=== PATIENT | male | born 1940 | race Caucasian/White ===

== ENCOUNTER 2018-08-10 07:25 | Outpatient (CLI) | payer MEDICARE, BC, SELFPAY ==
[2018-08-10 08:12] LABS: HCT 42.8 % (40.0-50.0); HGB 14.7 g/dL (13.5-17.5); Mean Corp. HGB Concentration 34.3 g/dL (32.0-36.0); Mean Corpuscular Hemoglobin 30.8 pg (27.0-33.0); Mean Corpuscular Volume 89.5 fL (80-95); Mean Platelet Volume 9.6 fL (8.0-11.0); Platelet Count 209 x1000/uL (130-400); RBC 4.78 m/cumm (4.50-6.00); RBC Distribution Width 13.2 % (11.8-14.1); White Blood Cell Count 7.09 k/cumm (4.4-10.8)
[2018-08-10 08:30] LABS: ALT 21 U/L (12-78); AST 17 U/L (15-37); Albumin 3.5 g/dL (3.4-5.0); Alkaline Phosphatase 111 U/L (46-116); Anion Gap 8.3 mmol/L (3-11); BUN 17 mg/dL (7-18); Bilirubin, Total 0.8 mg/dL (0.2-1.0); CO2 26.7 mmol/L (21.0-32.0); Calcium 8.8 mg/dL (8.5-10.1); Chloride 105 mmol/L (98-107); Estimated GFR 58.71 (mL/min/1.73m2); Glucose 127 mg/dL (70-100); Hemoglobin A1C 6.1 % (4.5-6.2); Potassium 4.1 mmol/L (3.5-5.1); Sodium 140 mmol/L (136-145); Total Protein 6.9 g/dL (6.4-8.2)
== END 2018-08-10 07:45 ==
PROVIDERS: PCP Family Medicine; Visit Provider Family Medicine
DX: I25.10 Atherosclerotic heart disease of native coronary artery without angina pectoris (principal); R73.01 Impaired fasting glucose; I10 Essential (primary) hypertension
CPT/HCPCS: 36415; 80053; 85027; 83036

== ENCOUNTER 2019-08-10 10:40 | Outpatient (CLI) | payer MEDICARE, BC, SELFPAY ==
[2019-08-10 11:59] LABS: Hemoglobin A1C 6.3 % (4.5-6.2)
[2019-08-10 12:15] LABS: Anion Gap 8.2 mmol/L (3-11); BUN 14 mg/dL (7-18); CO2 28.8 mmol/L (21.0-32.0); CREATININE 1.06 mg/dL (0.70-1.30); Calcium 8.7 mg/dL (8.5-10.1); Chloride 104 mmol/L (98-107); Glucose 98 mg/dL (70-100); Potassium 4.2 mmol/L (3.5-5.1); Sodium 141 mmol/L (136-145)
== END 2019-08-10 11:00 ==
PROVIDERS: PCP Family Medicine; Visit Provider Family Medicine
DX: R73.01 Impaired fasting glucose (principal); I10 Essential (primary) hypertension; I25.10 Atherosclerotic heart disease of native coronary artery without angina pectoris
CPT/HCPCS: 36415; 80048; 83036; 85610

== ENCOUNTER → 2019-10-07 11:05 | Outpatient (BNVA) | payer MEDICARE, BC, SELFPAY | PROVIDERS: PCP Family Medicine; Referring Provider Family Medicine; Visit Provider Physical Therapy Assistant | DX: Z12.11 Encounter for screening for malignant neoplasm of colon (principal); Z86.010 Personal history of colon polyps; I10 Essential (primary) hypertension; Z95.818 Presence of other cardiac implants and grafts ==

== ENCOUNTER 2019-10-28 06:51 | Day surgery (SDC) | payer MEDICARE, BC, SELFPAY ==
[2019-10-28 07:17] VITALS: BP 135/71; PULSE 51; RESP 17; TEMP 36.3; O2SAT 95
[2019-10-28] MEDS: Lactated Ringers 1,000 ML 80 ML IV (08:12)
--- NOTE | 2019-10-28 08:44 | W.COLOREPORT ---
Date of service: 10/28/19 Time of Service: 08:44 Colonoscopy Report Date of procedure: 10/28/19 Pre-op diagnosis general: adenamoutous polyp Post-op diagnosis procedure note: other Surgeon: Karoline Ramirez Anesthesia proc note operative: GETA Procedure Description: After informed consent was obtained the patient was taken to the procedure room and placed in a left decubitous position. Monitors were applied and a time out was done. The patients name, date of , procedure, allergies to medications and metal in their body was reviewed. The patient was then sedated. Once sedated and comfortable a rectal exam was done. External exam was normal. Internal exam revealed a normal sphincter tone and no palpable masses. The prostate not palpable. The scope was then introduced and retrofelexed. no internal hemorrhoids were identified. The scope was then advanced to the cecum w/out difficulty. The TI and appendiceal orifice were identified. The prep was suboptimal. The scope was then slowly retracted over 10 minutes back into the rectum. There are a few small diverticula confined to the sigmoid colon. There is no signs of active bleeding or infection. The mucosa is pink healthy and appears normal. There is no AVMs or polyps apparent today. Polyps were removed none. The scope was removed and the patient was woken up and taken back to Same day surgery in stable condition. The patient tolerated the procedure well and there were no immediate complications. Follow up: The patient not require any further screening: Unless they develop changes in bowel habits or other new gastrointestinal complaints.
--- NOTE | 2019-10-28 09:05 | W.PM.DS.N ---
Date of service: 10/28/19 Time of Service: 09:05 DS: Diagnosis Discharge Diagnosis (1) Diverticula of colon: Status: Acute Discharge Plan Discharge Details Attending Provider: Karoline Ramirez Primary Care Provider: Nunu Damon Home Meds and New Rx's Prescriptions: No Action loratadine 10 mg tablet 10 mg PO DAILY RF: 0 polyethylene glycol 3350 17 gram/dose powder 238 g PO ONCE Qty: 238 RF: 0 bisacodyl [Dulcolax (bisacodyl)] 5 mg tablet,delayed release (DR/EC) 5 mg PO ONCE Qty: 4 RF: 0 metoprolol succinate 50 MG tablet extended release 24 hr 50 mg PO BID RF: 0 lisinopril 40 MG tablet 40 mg PO DAILY RF: 0 cholecalciferol (vitamin D3) [Vitamin D3] 2,000 UNIT capsule 2,000 unit PO DAILY RF: 0 aspirin 81 MG tablet,delayed release (DR/EC) 81 mg PO DAILY RF: 0 simvastatin 40 MG tablet 40 mg PO HS RF: 0 nitroglycerin [Nitrostat] 0.4 MG tablet, sublingual 4 mg Sublingual DIRECTED RF: 0 DS: Data Vitals/I&O Vitals and I&O: Vital Signs Temperature 36.3 C L 10/28/19 07:17 Pulse 51 L 10/28/19 07:17 Pulse Rhythm Regular 10/28/19 07:17 Respiratory Rate 17 10/28/19 07:17 Respiratory Depth Deep 10/28/19 07:17 Blood Pressure 135/71 10/28/19 07:17 Pulse Oximetry 95 10/28/19 07:17 Oxygen Delivery Method Room Air 10/28/19 07:17 Oxygen Flow Rate 0 10/28/19 07:17 Pain Level 0 10/28/19 07:17 Intake & Output 10/27/19 10/27/19 10/28/19 11:59 23:59 11:59 Intake Total 400 / 400 Balance 400 / 400 Weight 111.9 kg Intake: IV 400 / 400 [facility] Medical History (Updated 10/28/19 @ 09:05 by Karoline Ramirez DO) Acoustic neuroma (Acute) Actinic keratosis (Acute) Adenomatous polyps (Acute) Diverticula of colon (Acute) 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
--- NOTE | 2019-10-28 09:05 | W.PM.DSUDISC ---
Discharge Plan Disposition Patient Disposition: HOME Condition: Good Discharge Details Reason For Visit: colon scope Attending Provider: Karoline Ramirez Primary Care Provider: Nunu Damon Home Meds and New Rx's Prescriptions: Continued loratadine 10 mg tablet 10 mg PO DAILY RF: 0 metoprolol succinate 50 MG tablet extended release 24 hr 50 mg PO BID RF: 0 lisinopril 40 MG tablet 40 mg PO DAILY RF: 0 cholecalciferol (vitamin D3) [Vitamin D3] 2,000 UNIT capsule 2,000 unit PO DAILY RF: 0 aspirin 81 MG tablet,delayed release (DR/EC) 81 mg PO DAILY RF: 0 simvastatin 40 MG tablet 40 mg PO HS RF: 0 nitroglycerin [Nitrostat] 0.4 MG tablet, sublingual 4 mg Sublingual DIRECTED RF: 0 Discontinued polyethylene glycol 3350 17 gram/dose powder 238 g PO ONCE Qty: 238 RF: 0 bisacodyl [Dulcolax (bisacodyl)] 5 mg tablet,delayed release (DR/EC) 5 mg PO ONCE Qty: 4 RF: 0 Discharge Instructions Instructions: Diverticulosis (GEN), High Fiber Diet (GEN) Additional Instructions: Hi do findings: diverticula Make sure you are moving your bowels on a regular basis and no straining. If you fine you are straining/constipation- start a fiber product such as metamucil or benefiber. Follow up:w/ PCP as needed. No further colonoscopies required Please call if you develop: fevers >101.5 Nausea or Vomiting Abdominal pain that is not transient DAY SURGERY UNIT POST COLONOSCOPY INSTRUCTIONS 1. Because there will be medication in your system for the next 24 hours, you may feel a little sleepy. Your coordination will be affected. Therefore: a. Do not drive or operate dangerous equipment for 24 hours. b. Do not drink alcohol beverages for 24 hours (not even beer). c. Plan to go home and rest for the day. 2. Generally there are no restrictions on your activity after a day or so has gone by, but you may feel a bit fatigued for a few days. 3 After you arrive home you may have a light meal and return to a normal diet as you can tolerate it without feeling sick to your stomach. 4. After surgery, you may feel pain or discomfort. This should be only transient, but if it persists please contact your doctor. 5. If there are any questions regarding the findings of your procedure, please feel free to contact your doctor. 6. If you are unable to contact your doctor with a problem, contact the hospital at [phone]. 7. Continue all your regular medications unless directed otherwise. I understand the above instructions and have no questions. Signature of Patient or Responsible Adult Escort Date/Time Name of Responsible Adult Escort Signature of Nurse Date/Time Activity:: No strenuous activity or heavy lifting x24 hours Diet:: Small bland meals x24 hours Discharge Orders Discharge Orders: Discharge Order (Routine); Ordered 10/28/19 Ordered By: Karoline Ramirez DS: Diagnosis Discharge Diagnosis (1) Diverticula of colon: Status: Acute
[2019-10-28 09:09] VITALS: BP 83/36; PULSE 53; RESP 18; TEMP 36.8; O2SAT 94
[2019-10-28 09:14] VITALS: BP 101/42; PULSE 51; RESP 18; TEMP 36.8; O2SAT 95
[2019-10-28 09:19] VITALS: BP 109/45; PULSE 52; RESP 17; TEMP 36.8; O2SAT 95
[2019-10-28 09:32] VITALS: BP 107/53; PULSE 53; RESP 15; TEMP 36.8; O2SAT 97
[2019-10-28 10:15] VITALS: BP 128/64; PULSE 62; RESP 16; TEMP 36; O2SAT 94
== END 2019-10-28 10:34 | disposition home or self-care (01) ==
PROVIDERS: PCP Family Medicine; Visit Provider Surgery
PROC: 0DJD8ZZ Inspection of Lower Intestinal Tract, Via Natural or Artificial Opening Endoscopic (ICD-10-PCS; CPT 45378; principal; 2019-10-28 08:15)
DX: Z12.11 Encounter for screening for malignant neoplasm of colon (principal); Z86.010 Personal history of colon polyps; K57.30 Diverticulosis of large intestine without perforation or abscess without bleeding; I25.10 Atherosclerotic heart disease of native coronary artery without angina pectoris; Z95.5 Presence of coronary angioplasty implant and graft; I10 Essential (primary) hypertension; Z79.01 Long term (current) use of anticoagulants
CPT/HCPCS: G0121

== ENCOUNTER 2020-08-14 10:15 | Outpatient (REF) | payer MEDICARE, BC, SELFPAY ==
[2020-08-14 19:26] LABS: HCT 44.4 % (40.0-50.0); HGB 15.1 g/dL (13.5-17.5); MCH 30.5 pg (27.0-33.0); MCV 89.7 fL (80-95); MPV 9.9 fL (8.0-11.0); Platelet Count 217 10^3/uL (130-400); RBC 4.95 10^6/uL (4.36-5.78); RDW 12.8 % (11.8-14.1); RDW-SD 41.9 fL; WBC 7.23 10^3/uL (4.4-10.8)
[2020-08-14 19:37] LABS: Anion Gap 9.6 mmol/L (3-11); BUN 14 mg/dL (7-18); CO2 26.4 mmol/L (21.0-32.0); CREATININE 1.19 mg/dL (0.70-1.30); Calcium 8.5 mg/dL (8.5-10.1); Calculated LDL 65 mg/dL (<100); Chloride 106 mmol/L (98-107); Cholesterol 149 mg/dL (<200); Estimated GFR 58.97 (mL/min/1.73m2); Glucose 200 mg/dL (74-106); HDL Cholesterol 32 mg/dL (40-60); Potassium 3.7 mmol/L (3.5-5.1); Sodium 142 mmol/L (136-145); Triglyceride 260 mg/dL (<150)
[2020-08-14 20:22] LABS: Hemoglobin A1C 6.2 % (<5.7)
== END 2020-08-14 10:35 ==
LOC: NCHCN 10:15
PROVIDERS: PCP Family Medicine; Visit Provider Family Medicine
DX: R73.03 Prediabetes (principal); I10 Essential (primary) hypertension; E78.5 Hyperlipidemia, unspecified; I25.10 Atherosclerotic heart disease of native coronary artery without angina pectoris
CPT/HCPCS: 80048; 80061; 85027; 83036

== ENCOUNTER 2020-09-04 13:52 | Outpatient (REF) | payer MEDICARE, BC, SELFPAY ==
--- NOTE | 2020-09-04 13:38 | SKI_PTH ---
PATIENT: Estiven Perez LOC: [facility] U#:[id number] AGE/SX: 80/M ROOM: RE09/04/[address]: Winston Vallecillo DO : 1940 BED: DIS: 09/04/2020 SPEC #: [id number] RECD: 09/04/20 18:34 STATUS: BOBBI REQ #: [id number] VASYL: 09/04/20 13:[address]: Winston Vallecillo DEPT: Surgical Specimen RECD BY: Trina Pan ENTERED: 09/04/20 18:34 SP TYPE: MAX VALERIO DR: Nunu Damon Tissues: 1 - SKIN BIOPSY(SHAVE/PUNCH) Procedures: SKIN LEVEL 4 Comments: [id number]
== END 2020-09-04 14:12 ==
LOC: LBN 13:52
PROVIDERS: PCP Family Medicine; Visit Provider Otolaryngology Otolaryngology/Facial Plastic Surgery
DX: C44.219 Basal cell carcinoma of skin of left ear and external auricular canal (principal)
CPT/HCPCS: 88305

== ENCOUNTER 2021-09-11 08:05 | Outpatient (REF) | payer MEDICARE, BC, SELFPAY ==
[2021-09-11 14:06] LABS: HCT 42.1 % (40.0-50.0); MCH 29.5 pg (27.0-33.0); MCHC 33.3 % (32.0-36.0); MCV 88.6 fL (80-95); MPV 9.8 fL (8.0-11.0); Platelet Count 200 10^3/uL (130-400); RBC 4.75 10^6/uL (4.36-5.78); RDW 12.6 % (11.8-14.1); RDW-SD 41.1 fL; WBC 6.62 10^3/uL (4.4-10.8)
[2021-09-11 14:32] LABS: ALT 17 U/L (16-63); AST 13 U/L (15-37); Albumin 3.5 g/dL (3.4-5.0); Alkaline Phosphatase 119 U/L (46-116); BUN 15 mg/dL (7-18); Bilirubin, Total 0.8 mg/dL (0.2-1.0); CREATININE 1.1 mg/dL (0.70-1.30); Calcium 8.8 mg/dL (8.5-10.1); Calculated LDL 79 mg/dL (<100); Chloride 106 mmol/L (98-107); Cholesterol 137 mg/dL (<200); Glucose 147 mg/dL (74-106); HDL Cholesterol 31 mg/dL (40-60); Potassium 4.1 mmol/L (3.5-5.1); Sodium 140 mmol/L (136-145); TSH (W/Ref FT4) 1.92 uIU/mL (0.36-3.74); Total Protein 6.7 g/dL (6.4-8.2); Triglyceride 138 mg/dL (<150)
[2021-09-11 14:51] LABS: Hemoglobin A1C 6.8 % (<5.7)
== END 2021-09-11 08:06 | disposition home or self-care (01) ==
LOC: NCHCN 08:05
PROVIDERS: PCP Family Medicine; Visit Provider Family Medicine
DX: E78.5 Hyperlipidemia, unspecified (principal); I10 Essential (primary) hypertension; R73.03 Prediabetes; I25.10 Atherosclerotic heart disease of native coronary artery without angina pectoris
CPT/HCPCS: 80053; 80061; 85027; 83036; 84443

== ENCOUNTER 2021-10-17 08:20 | Outpatient (REF) | payer MEDICARE, BC, SELFPAY ==
[2021-10-17 19:19] LABS: BUN 22 mg/dL (7-18); CREATININE 1.3 mg/dL (0.70-1.30); Calcium 8.8 mg/dL (8.5-10.1); Chloride 103 mmol/L (98-107); Estimated GFR 53.12 (mL/min/1.73m2); Glucose 246 mg/dL (74-106); Sodium 140 mmol/L (136-145)
== END 2021-10-17 08:21 | disposition home or self-care (01) ==
LOC: NCHCN 08:20
PROVIDERS: PCP Family Medicine; Visit Provider Family Medicine
DX: I10 Essential (primary) hypertension (principal); Z51.81 Encounter for therapeutic drug level monitoring
CPT/HCPCS: 80048

== ENCOUNTER 2022-03-15 19:02 | Outpatient (REF) | payer MEDICARE, BC, SELFPAY ==
[2022-03-15 18:53] LABS: Anion Gap 9.8 mmol/L (3-11); BUN 16 mg/dL (7-18); CO2 24.2 mmol/L (21.0-32.0); CREATININE 1.1 mg/dL (0.70-1.30); Calcium 8.5 mg/dL (8.5-10.1); Chloride 107 mmol/L (98-107); Glucose 117 mg/dL (74-106); Potassium 4.4 mmol/L (3.5-5.1); Sodium 141 mmol/L (136-145)
[2022-03-15 18:59] LABS: Hemoglobin A1C 6.8 % (<5.7)
== END 2022-03-15 19:03 | disposition home or self-care (01) ==
LOC: NCHCN 19:02
PROVIDERS: PCP Family Medicine; Visit Provider Family Medicine
DX: R73.03 Prediabetes (principal); I10 Essential (primary) hypertension
CPT/HCPCS: 80048; 83036

== ENCOUNTER 2022-03-20 19:16 | Outpatient (REF) | payer MEDICARE, BC, SELFPAY ==
[2022-03-20 19:39] LABS: COMMENT (LAB VIEW ONLY) 148.65 mg/dL; Microalb ug/mg Crea 12.2 ug/mg Cr
== END 2022-03-20 19:17 | disposition home or self-care (01) ==
LOC: NCHCN 19:16
PROVIDERS: PCP Family Medicine; Visit Provider Family Medicine
DX: E11.9 Type 2 diabetes mellitus without complications (principal)
CPT/HCPCS: 82043; 82570

== ENCOUNTER 2022-09-16 12:00 | Outpatient (REF) | payer MEDICARE, BC, SELFPAY ==
[2022-09-16 15:54] LABS: ALT 24 U/L (16-63); AST 22 U/L (15-37); Albumin 3.6 g/dL (3.4-5.0); Alkaline Phosphatase 107 U/L (46-116); Anion Gap 6.3 mmol/L (3-11); BUN 15 mg/dL (7-18); CO2 27.7 mmol/L (21.0-32.0); CREATININE 1.2 mg/dL (0.70-1.30); Calcium 9.1 mg/dL (8.5-10.1); Calculated LDL 89 mg/dL (<100); Chloride 108 mmol/L (98-107); Cholesterol 152 mg/dL (<200); Estimated GFR 60.75 (mL/min/1.73m2); Glucose 152 mg/dL (74-106); HDL Cholesterol 41 mg/dL (40-60); Sodium 142 mmol/L (136-145); Total Protein 7.3 g/dL (6.4-8.2); Triglyceride 114 mg/dL (<150)
[2022-09-16 17:04] LABS: Hemoglobin A1C 6.7 % (<5.7)
== END 2022-09-16 12:01 | disposition home or self-care (01) ==
LOC: NCHCN 12:00
PROVIDERS: PCP Family Medicine; Visit Provider Family Medicine
DX: E11.9 Type 2 diabetes mellitus without complications (principal); I25.10 Atherosclerotic heart disease of native coronary artery without angina pectoris; E78.5 Hyperlipidemia, unspecified; I10 Essential (primary) hypertension
CPT/HCPCS: 80053; 80061; 83036

== ENCOUNTER 2022-09-19 15:42 | Outpatient (REF) | payer MEDICARE, BC, SELFPAY ==
[2022-09-19 15:21] LABS: NT-proBNP 713 pg/mL (<300)
== END 2022-09-19 15:43 | disposition home or self-care (01) ==
LOC: NCHCN 15:42
PROVIDERS: PCP Family Medicine; Visit Provider Family Medicine
DX: N40.0 Benign prostatic hyperplasia without lower urinary tract symptoms (principal); R39.14 Feeling of incomplete bladder emptying; I25.2 Old myocardial infarction; R06.09 Other forms of dyspnea
CPT/HCPCS: 83880; 84153

== ENCOUNTER → 2022-10-22 02:53 | Outpatient (CLI) | payer MEDICARE, BC, SELFPAY ==
--- NOTE | 2022-10-22 | DI.US_ITS ---
Exam(s) US RENAL EXAM: US RENAL CLINICAL HISTORY: IMCOMPLETE BLADDER EMPTYING R39.14 PRE AND POST VOID. TECHNIQUE: Donnelly scale, color and spectral Doppler were used. COMPARISON: CT ABD PELVIS WITH CONTRAST from 09/25/2015 FINDINGS: Renal size in cm: Right: 10.4. Left: 10.6. Echogenicity: Normal. Hydronephrosis: No. Cyst or mass: There is a 1.1 x 0.9 cm simple cyst in the superior aspect of the right kidney. No fol low-up is recommended. Nephrolithiasis: No. Other findings: None. Bladder:Normal. Ureteral jets: Right: Visualized and unremarkable. Left: Visualized and unremarkable. Prevoid vol:162 cc Postvoid vol:8 cc Prostate: 56 cc Renal color flow: Symmetric and within normal limits. IMPRESSION: 1. Simple right renal cyst. 2. Enlarged prostate gland. DATA REPOSITORY:
== END ==
PROVIDERS: PCP Family Medicine; Visit Provider Family Medicine
DX: N28.1 Cyst of kidney, acquired (principal)
CPT/HCPCS: 76770

== ENCOUNTER 2022-10-22 15:47 | Outpatient (REF) | payer MEDICARE, BC, SELFPAY ==
[2022-10-22 16:21] LABS: Anion Gap 7.6 mmol/L (3-11); BUN 28 mg/dL (7-18); CO2 26.4 mmol/L (21.0-32.0); CREATININE 1.2 mg/dL (0.70-1.30); Calcium 9.7 mg/dL (8.5-10.1); Chloride 101 mmol/L (98-107); Estimated GFR 60.75 (mL/min/1.73m2); Glucose 143 mg/dL (74-106); Potassium 4.2 mmol/L (3.5-5.1); Sodium 135 mmol/L (136-145)
== END 2022-10-22 15:48 | disposition home or self-care (01) ==
LOC: NCHCN 15:47
PROVIDERS: PCP Family Medicine; Visit Provider Family Medicine
DX: Z00.00 Encounter for general adult medical examination without abnormal findings (principal)
CPT/HCPCS: 80048

== ENCOUNTER 2023-03-19 10:23 | Outpatient (REF) | payer MEDICARE, BC, SELFPAY ==
[2023-03-19 19:55] LABS: NT-proBNP 433 pg/mL (<300)
[2023-03-19 20:01] LABS: COMMENT (LAB VIEW ONLY) 186.64 mg/dL
[2023-03-19 20:36] LABS: Anion Gap 8.9 mmol/L (3-11); BUN 23 mg/dL (7-18); CO2 24.1 mmol/L (21.0-32.0); CREATININE 1.5 mg/dL (0.70-1.30); Calcium 9.1 mg/dL (8.5-10.1); Chloride 101 mmol/L (98-107); Estimated GFR 46.19 (mL/min/1.73m2); Glucose 176 mg/dL (74-106); Sodium 134 mmol/L (136-145)
== END 2023-03-19 10:24 | disposition home or self-care (01) ==
LOC: NCHCN 10:23
PROVIDERS: PCP Family Medicine; Visit Provider Family Medicine
DX: E11.9 Type 2 diabetes mellitus without complications (principal); I10 Essential (primary) hypertension; R60.0 Localized edema; Z51.81 Encounter for therapeutic drug level monitoring
CPT/HCPCS: 80048; 82043; 82570; 83880

== ENCOUNTER 2023-09-08 21:19 | Outpatient (REF) | payer MEDICARE, BC, SELFPAY ==
[2023-09-08 16:28] LABS: Anion Gap 7.2 mmol/L (3-11); BUN 18 mg/dL (7-18); CO2 25.8 mmol/L (21.0-32.0); CREATININE 1.2 mg/dL (0.70-1.30); Chloride 105 mmol/L (98-107); Estimated GFR 60.38 (mL/min/1.73m2); Glucose 217 mg/dL (74-106); Sodium 138 mmol/L (136-145)
[2023-09-08 17:04] LABS: Hemoglobin A1C 7.3 % (<5.7)
== END 2023-09-08 21:20 | disposition home or self-care (01) ==
LOC: NCHCN 21:19
PROVIDERS: PCP Family Medicine; Visit Provider Family Medicine
DX: E11.9 Type 2 diabetes mellitus without complications (principal); I10 Essential (primary) hypertension; R60.0 Localized edema
CPT/HCPCS: 80048; 83036

== ENCOUNTER 2024-03-15 15:18 | Outpatient (REF) | payer MEDICARE, SELFPAY ==
[2024-03-15 16:01] LABS: COMMENT (LAB VIEW ONLY) 150.23 mg/dL; Microalb ug/mg Crea 4.9 ug/mg Cr
== END 2024-03-15 15:19 | disposition home or self-care (01) ==
LOC: NCHCN 15:18
PROVIDERS: PCP Family Medicine; Visit Provider Family Medicine
DX: E11.9 Type 2 diabetes mellitus without complications (principal)
CPT/HCPCS: 82043; 82570

== ENCOUNTER 2024-10-19 01:35 | Outpatient (CLI) | payer MEDICARE, SELFPAY ==
--- NOTE | 2024-10-19 | DI.US_ITS ---
APPROVED REPORT EXAM: Comprehensive 2D, Doppler, and color-flow Echocardiogram Patient Location: Out-Patient Disabilities Caregiver: Jocelyn Flynn RDCS (AE) Indications: Nonrheumatic aortic valve insufficiency, CAD Other Information Study Quality: Adequate Conclusion Normal left ventricular wall thickness and chamber size. Ejection fraction is 55%. There are no seg mental wall motion abnormalities Normal right ventricular size and function Left atrium is moderately enlarged. Right atrial size is normal Aortic valve is sclerotic and trileaflet. There is trace to mild regurgitation. There is no aortic stenosis Mild mitral annular calcification. Mild to moderate mitral regurgitation Normal tricuspid valve with mild to moderate regurgitation. Estimated right ventricular systolic pre ssure is 36 mmHg Ascending aorta measures 3.6 cm Wall motion Left Ventricle The left ventricle is normal size. The overall left ventricular systolic function appears normal. The re is normal left ventricular wall thickness. There are no segmental wall motion abnormalities There is no ventricular septal defect visualized. LVEF is 55%. Right Ventricle Right ventricle is grossly normal in size. Right ventricular systolic function is grossly normal. Atria Left atrium is moderately dilated. The right atrium size is normal. The interatrial septum is intact with no evidence for an atrial septal defect. Aortic Valve The Aortic valve is sclerotic. Aortic valve is trileaflet. There is no aortic valvular stenosis. Trac e to mild aortic regurgitation. Mitral Valve Mild mitral annular calcification. No evidence of mitral valve stenosis. Mild to moderate mitral reg urgitation. Tricuspid Valve The tricuspid valve is normal in structure. There is no tricuspid valve stenosis. Mild to moderate t ricuspid regurgitation. The RVSP is 35.6 mmHg. Pulmonic Valve The pulmonary valve is normal in structure. There is no pulmonic valvular stenosis. Mild pulmonic reg urgitation. Great Vessels The aortic root is normal in size. The ascending aorta is mildly dilated. Aortic arch is not well vis ualized. IVC is normal in size and collapses >50% with inspiration. Pericardium There is no pericardial effusion. 2D Dimensions IVSD d PLAX 1.05 cm M: 0.6-1.2 Ao Root d 3.21 cm M: 3.1 - 3.7 LVPW d PLAX 1.03 cm M: 0.6 - 1.2 Ao Asc Diam d 3.60 cm M: 2.6 - 3.4 LVID d PLAX 5.10 cm M: 4.2 - 5.8 LVDs 3.83 cm M: 2.5 - 4.0 LV EF Teichholz 49.2 % FS 25.04 % LV EDV (Teich) 124.0 mL LV ESV (Teich) 62.9 mL M-Mode TAPSE 3.23 cm (M/F) >1.7 Auto EF LV EDV A4C 174.6 mL LV EDV A2C 143.4 mL LV EDV BP 163.0 mL LV ESV A4C 86.2 mL LV ESV A2C 72.3 mL LV ESV BP 79.1 mL LVEF(%) A4C 50.6 % LVEF(%) A2C 49.6 % LVEF(%) BP 51.5 % LV SV A4C 88.3 ml LV SV A2C 71.1 ml LV SV BP 83.9 ml LV CO A4C 5.5 L/min LV CO A2C 4.4 L/min LV CO BP 5.0 L/min HR A4C 62.29 BPM HR A2C 62.29 BPM LV EDV Index (BP) LA Volume LA Length A4C 6.5 cm LA Length A2C 5.0 cm LA Area A4C s 27.21 cm2 LA Area A2C s 20.23 cm2 LA Vol A4C A-L 97.11 mL LA Vol A2C A-L 69.78 mL LA Vol Biplane A-L 93.8 mL LA Vol/BSA A4C A-L LA Vol/BSA A2C A-L LA Vol/BSA BP A-L 45.8 mL/m2 LA Vol A4C MOD 92.1 mL LA Vol A2C MOD 66.3 mL LA Vol BP MOD 88.8 mL RA Volume RA Area A4C 15.3 cm2 RA ESV A4C (A-L) 34.0mL RA Vol/BSA A4C A-L RA Length A4C 5.9 cm RA ESV A4C (MOD) 32.4mL LV Diastology MV E' medial 0.071 (>0.07 m/s) MV E Vmax 0.58 (0.4-1.3 m/s) MV E/E' MED 8.14 (<14) MV A Vmax 0.80 (0.4-1.3 m/s) MV E' lateral 0.051 (>0.1 m/s) E/A Ratio 0.7 MV E/E' LAT 11.43 (<14) MV E' Average 0.061 m/s MV E/E'(average) 9.51 Aortic Valve AoV Vmax 1.33 m/s LVOT Vmax 1.04 m/s AoV Peak Grad 27.5 mmHg LVOT Peak Grad 4.4 mmHg AoV Area (Vmax) 2.58 cm2 LVOT VTI 0.195 m AoV VTI 0.291 m LVOT Mean Grad 2.8 mmHg AoV Mean Lj. 0.91 m/s LVOT SV 64.27 mL AoV Mean Grad 3.8 mmHg LVOT Diam s 2.00 cm AoV Area (VTI) 2.21 cm2 AV Regurg Peak Gr. 7.07 mmHg Velocity Ratio 0.78 AR Decel [place] 1.9m/sec2 AR DT 1779 msec AR PHT 516 msec AR Vmax 3.46 m/s Mitral Valve MV DT 389 (160-240 msec) MV Vmax TIPS 0.77 m/s MV Mean Grad 0.7 (<2mmHg) MV VTI 0.304 m Pulmonary Valve PV Vmax 1.05 (0.5-1.5 m/s) RVOT Vmax 0.63 m/s PV Peak Grad 4.4 mmHg RVOT Peak Gr. 1.6 mmHg PV Mean Lj 0.62 m/s RVOT VTI 0.123 m PV Mean Grad 1.9 mmHg RVOT Mean Gr. 0.8 mmHg Tricuspid Valve RA Pressure 3.00 mmHg TR Vmax 2.86 m/s TV S' 0.13 m/s TR Peak Grad 32.6 mmHg RVSP (TR) 35.6 mmHg
== END 2024-10-19 01:55 ==
LOC: DI 01:35
PROVIDERS: PCP Family Medicine; Visit Provider Family Medicine
DX: I35.1 Nonrheumatic aortic (valve) insufficiency (principal); I34.0 Nonrheumatic mitral (valve) insufficiency; I36.0 Nonrheumatic tricuspid (valve) stenosis
CPT/HCPCS: 93306

== ENCOUNTER 2025-04-06 09:26 | Outpatient (REF) | payer MEDICARE, SELFPAY ==
[2025-04-06 20:53] LABS: HCT 39.1 % (40.0-50.0); HGB 13.2 g/dL (13.5-17.5); MCH 30.3 pg (27.0-33.0); MCHC 33.8 % (32.0-36.0); MCV 90 fL (80-95); MPV 9.6 fL (8.0-11.0); Platelet Count 217 10^3/uL (130-400); RBC 4.36 10^6/uL (4.36-5.78); RDW 12.6 % (11.8-14.1); WBC 5.55 10^3/uL (4.4-10.8)
[2025-04-06 21:10] LABS: ALT 22 U/L (16-63); AST 18 U/L (15-37); Albumin 3.4 g/dL (3.4-5.0); Alkaline Phosphatase 113 U/L (46-116); Anion Gap 7.1 mmol/L (3-11); BUN 16 mg/dL (7-18); Bilirubin, Total 0.5 mg/dL (0.2-1.0); CO2 25.9 mmol/L (21.0-32.0); Calcium 9.1 mg/dL (8.5-10.1); Chloride 109 mmol/L (98-107); Estimated GFR 74.21 (mL/min/1.73m2); Glucose 139 mg/dL (74-106); Potassium 3.8 mmol/L (3.5-5.1); Sodium 142 mmol/L (136-145); Total Protein 6.3 g/dL (6.4-8.2)
[2025-04-06 21:45] LABS: COMMENT (LAB VIEW ONLY) 221.05 mg/dL; Microalb ug/mg Crea 7.7 ug/mg Cr
== END 2025-04-06 09:27 | disposition home or self-care (01) ==
LOC: NCHCN 09:26
PROVIDERS: PCP Family Medicine; Visit Provider Family Medicine
DX: I10 Essential (primary) hypertension (principal)
CPT/HCPCS: 80053; 85027; 82043; 82570

== ENCOUNTER → 2025-10-12 02:14 | Outpatient (CLI) | payer MEDICARE, SELFPAY ==
--- NOTE | 2025-10-12 14:30 | DI.US_ITS ---
APPROVED REPORT EXAM: Comprehensive 2D, Doppler, and color-flow Echocardiogram Patient Location: Out-Patient [employer]uum [employer] Operator: Jocelyn Flynn RDCS (AE) Indications: Nonrheumatic mitral valve insufficiency, Aortic stenosis and Mild ascending aorta dilation Other Information Study Quality: Adequate Conclusion Normal left ventricular wall thickness and chamber size. Ejection fraction is 55 to 60%. Wall motion is normal Normal right ventricular size and function Left atrium is mildly to moderately dilated Borderline dilated right atrium Trileaflet aortic valve with mild regurgitation. There is no hemodynamically significant aortic stenosis Mild mitral and tricuspid regurgitation Normal estimated right ventricular systolic pressure 28 mmHg Very mildly dilated ascending aorta measuring 3.64 cm Wall motion Left Ventricle The left ventricle is normal size. The left ventricular systolic function is normal. The left ventricular ejection fraction is within the normal range. There is normal left ventricular wall thickness. There is normal LV segmental wall motion. There is no ventricular septal defect visualized. LVEF is 55-60%. Right Ventricle The right ventricle is normal size. The right ventricular systolic function is normal. Atria Left atrium is mild to moderately dilated. Right atrium is borderline dilated. The interatrial septum is intact with no evidence for an atrial septal defect. Aortic Valve The aortic valve is normal in structure. Aortic valve is trileaflet. There is no aortic valvular stenosis. Mild aortic regurgitation. Mitral Valve Mild mitral annular calcification. No evidence of mitral valve stenosis. Mild mitral regurgitation. Tricuspid Valve The tricuspid valve is normal in structure. There is no tricuspid valve stenosis. Mild tricuspid regurgitation. The RVSP is 28.3 mmHg. Pulmonic Valve The pulmonary valve is normal in structure. There is no pulmonic valvular stenosis. Mild pulmonic regurgitation. Great Vessels The aortic root is normal in size. The ascending aorta is mildly dilated. Aortic arch is not well visualized. IVC is normal in size and collapses >50% with inspiration. Pericardium There is no pericardial effusion. 2D Dimensions IVSD d PLAX 1.00 cm M: 0.6-1.2 Ao Root d 3.35 cm M: 3.1 - 3.7 LVPW d PLAX 1.05 cm M: 0.6 - 1.2 Ao Asc Diam d 3.64 cm M: 2.6 - 3.4 LVID d PLAX 5.44 cm M: 4.2 - 5.8 LVDs 3.90 cm M: 2.5 - 4.0 LV EF Teichholz 55.3 % FS 29.06 % LV EDV (Teich) 143.7 mL LV ESV (Teich) 64.2 mL M-Mode TAPSE 2.64 cm (M/F) >1.7 Auto EF LV EDV A4C 198.5 mL LV EDV A2C 193.3 mL LV EDV BP 203.6 mL LV ESV A4C 89.9 mL LV ESV A2C 87.2 mL LV ESV BP 90.7 mL LVEF(%) A4C 54.7 % LVEF(%) A2C 54.9 % LVEF(%) BP 55.4 % LV SV A4C 108.5 ml LV SV A2C 106.1 ml LV SV BP 112.8 ml LV CO A4C 7.5 L/min LV CO A2C 7.8 L/min LV CO BP 7.7 L/min HR A4C 68.84 BPM HR A2C 73.77 BPM LV EDV Index (BP) LA Volume LA Length A4C 6.9 cm LA Length A2C 5.6 cm LA Area A4C s 26.64 cm2 LA Area A2C s 20.14 cm2 LA Vol A4C A-L 87.83 mL LA Vol A2C A-L 61.64 mL LA Vol Biplane A-L 81.5 mL LA Vol/BSA A4C A-L LA Vol/BSA A2C A-L LA Vol/BSA BP A-L 40.2 mL/m2 LA Vol A4C MOD 84.7 mL LA Vol A2C MOD 58.5 mL LA Vol BP MOD 77.9 mL RA Volume RA Area A4C 15.0 cm2 RA ESV A4C (A-L) 37.0mL RA Vol/BSA A4C A-L RA Length A4C 5.2 cm RA ESV A4C (MOD) 36.9mL LV Diastology MV E' medial 0.062 (>0.07 m/s) MV E Vmax 0.73 (0.4-1.3 m/s) MV E/E' MED 11.92 (<14) MV A Vmax 0.70 (0.4-1.3 m/s) MV E' lateral 0.088 (>0.1 m/s) E/A Ratio 1.0 MV E/E' LAT 8.30 (<14) MV E' Average 0.075 m/s MV E/E'(average) 9.79 Aortic Valve AoV Vmax 1.50 m/s LVOT Vmax 0.81 m/s AoV Peak Grad 21.3 mmHg LVOT Peak Grad 2.6 mmHg AoV Area (Vmax) 1.65 cm2 LVOT VTI 0.182 m AoV VTI 0.303 m LVOT Mean Grad 1.2 mmHg AoV Mean Lj. 1.01 m/s LVOT SV 55.32 mL AoV Mean Grad 4.7 mmHg LVOT Diam s 1.95 cm AoV Area (VTI) 1.83 cm2 AV Regurg Peak Gr. 8.98 mmHg Velocity Ratio 0.54 AR Decel [place] 1.2m/sec2 AR DT 2417 msec AR PHT 701 msec AR Vmax 2.90 m/s Mitral Valve MV DT 198 (160-240 msec) MV Vmax TIPS 0.82 m/s MV Mean Grad 0.9 (<2mmHg) MV VTI 0.192 m Pulmonary Valve PV Vmax 0.84 (0.5-1.5 m/s) RVOT Vmax 0.68 m/s PV Peak Grad 2.8 mmHg RVOT Peak Gr. 1.9 mmHg PV Mean Lj 0.65 m/s RVOT VTI 0.143 m PV Mean Grad 1.8 mmHg RVOT Mean Gr. 1.0 mmHg Tricuspid Valve RA Pressure 3.00 mmHg TR Vmax 2.51 m/s TV S' 0.13 m/s TR Peak Grad 25.2 mmHg RVSP (TR) 28.3 mmHg
== END ==
PROVIDERS: PCP Family Medicine; Visit Provider Family Medicine
DX: I08.3 Combined rheumatic disorders of mitral, aortic and tricuspid valves (principal)
CPT/HCPCS: 93306